=== PATIENT | male | born 1985 | race Caucasian/White ===

== ENCOUNTER 2017-07-23 07:40 | Emergency (ER) | payer OTHER ==
[2017-07-23] MEDS ORDERED: cefTRIAXone 250 MG in Lidocaine 1% 1 ML IM ONE (08:05)
[2017-07-23] MEDS ORDERED: Azithromycin 250 MG Tab PO STA (08:07)
--- NOTE | 2017-07-23 08:07 | EDM.PDOC ---
ED HPI GENERAL MEDICAL PROBLEM - General Chief Complaint: Genitourinary Problem Stated Complaint: PT WOULD LIKE TO GET CHECK FOR STD Time Seen by Provider: 07/23/17 08:05 - History of Present Illness INITIAL COMMENTS - FREE TEXT/NARRATIVE: HISTORY AND PHYSICAL: History of present illness: Patient 32-year-old male presents with a concern of gonorrhea exposure per his girlfriend he denies any other concern he does request empiric treatment Review of systems: As per history of present illness and below otherwise all systems reviewed and negative. Past medical history: As per history of present illness and as reviewed below otherwise noncontributory. Surgical history: As per history of present illness and as reviewed below otherwise noncontributory. Social history: No reported history of drug or alcohol abuse. Family history: As per history of present illness and as reviewed below otherwise noncontributory. Physical exam: HEENT: Atraumatic, normocephalic, pupils reactive, negative for conjunctival pallor or scleral icterus, mucous membranes moist, throat clear, neck supple, nontender, trachea midline. Lungs: Clear to auscultation, breath sounds equal bilaterally, chest nontender. Heart: S1S2, regular, negative for clicks, rubs, or JVD. Abdomen: Soft, nondistended, nontender. Negative for masses or hepatosplenomegaly. Negative for costovertebral tenderness. Pelvis: Stable nontender. Genitourinary: Deferred. Rectal: Deferred. Extremities: Atraumatic, negative for cords or calf pain. Neurovascular unremarkable. Neuro: Awake, alert, oriented. Cranial nerves II through XII unremarkable. Cerebellum unremarkable. Motor and sensory unremarkable throughout. Exam nonfocal. Diagnostics: UA GC chlamydia Therapeutics: Rocephin 250 mg IM and azithromycin 1 g by mouth Impression: #1 history of STD exposure Definitive disposition and diagnosis as appropriate pending reevaluation and review of above. - Related Data Allergies Allergy/AdvReac Type Severity Reaction Status Date / Time No Known Allergies Allergy Verified 07/23/17 08:02 Home Meds: Home Meds Methylphenidate HCl [Ritalin] 07/23/17 [History] Mood Stablizer 07/23/17 [History] lamoTRIgine [Lamictal] 500 mg PO DAILY 07/23/17 [History] risperiDONE [RisperiDAL M-Tab] 1 mg PO DAILY 07/23/17 [History] ED ROS GENERAL - Review of Systems Review Of Systems: ROS reveals no pertinent complaints other than HPI. ED EXAM, GENERAL - Physical Exam Exam: See Below (The dictation) Course - Orders/Labs/Meds Orders: Active Orders 24 hr Category Date Time Status CHLAMYDIA AND GONORRHEA BY [facility] Stat Lab 07/23/17 07:50 Received UA W/MICROSCOPIC [URIN] Stat Lab 07/23/17 07:50 Received Departure - Departure Time of Disposition: 08:06 Disposition: Home, Self-Care 01 Condition: Good Clinical Impression: STD exposure - Discharge Information Referrals: PCP,None [Primary Care Provider] - Additional Instructions: The following information is given to patients seen in the emergency department who are being discharged to home. This information is to outline your options for follow-up care. We provide all patients seen in our emergency department with a follow-up referral. The need for follow-up, as well as the timing and circumstances, are variable depending upon the specifics of your emergency department visit. If you don't have a primary care physician on staff, we will provide you with a referral. We always advise you to contact your personal physician following an emergency department visit to inform them of the circumstance of the visit and for follow-up with them and/or the need for any referrals to a consulting specialist. The emergency department will also refer you to a specialist when appropriate. This referral assures that you have the opportunity for followup care with a specialist. All of these measure are taken in an effort to provide you with optimal care, which includes your followup. Under all circumstances we always encourage you to contact your private physician who remains a resource for coordinating your care. When calling for followup care, please make the office aware that this follow-up is from your recent emergency room visit. If for any reason you are refused follow-up, please contact the [facility] emergency department at and asked to speak to the emergency department charge nurse. [facility] [address] [place] [id number] Follow-up primary medical doctor and/or clinic as needed as discussed follow-up for further screening as discussed return as needed as discussed - My Orders Last 24 Hours: My Active Orders 07/23/17 07:50 CHLAMYDIA AND GONORRHEA BY TMA Stat UA W/MICROSCOPIC [URIN] Stat - Assessment/Plan Last 24 Hours: My Active Orders 07/23/17 07:50 CHLAMYDIA AND GONORRHEA BY TMA Stat UA W/MICROSCOPIC [URIN] Stat
== END 2017-07-23 08:35 | disposition home or self-care (01) ==
LOC: MW.ED 07:40
DX: Z20.2 Contact with and (suspected) exposure to infections with a predominantly sexual mode of transmission (principal); Z79.899 Other long term (current) drug therapy
CPT/HCPCS: 81001; 87491; 87591; 96372; 99283; A9270; J0696; 99282; J2001